=== PATIENT | female | born 1965 | race Caucasian/White ===

== ENCOUNTER → 2017-12-08 | Outpatient (CLI) | payer OTHER | END | disposition home or self-care (01) | LOC: MRI 13:54 | DX: M75.110 Incomplete rotator cuff tear or rupture of unspecified shoulder, not specified as traumatic (principal); M75.100 Unspecified rotator cuff tear or rupture of unspecified shoulder, not specified as traumatic | CPT/HCPCS: 73221 ==

== ENCOUNTER → 2017-12-08 | Outpatient (CLI) | payer OTHER | END | disposition home or self-care (01) | LOC: RAD 14:04 | DX: N23 Unspecified renal colic (principal); R10.83 Colic ==

== ENCOUNTER 2018-05-21 09:00 | Day surgery (SDC) | payer OTHER | END 2018-05-21 12:50 | disposition home or self-care (01) | LOC: AMB-ENDOS 09:00 | DX: K57.30 Diverticulosis of large intestine without perforation or abscess without bleeding (principal) ==

== ENCOUNTER 2021-06-04 12:00 | Inpatient (IN) | payer OTHER ==
[~2021-06-04] VITALS: Ht 167.6 cm; Wt 86.2 kg
[2021-06-04] MEDS ORDERED: METFORMIN HCL1000 M2 PO (14:32)
[2021-06-04] MEDS ORDERED: SYNTHROID75 MCG PO (14:33)
[2021-06-04] MEDS ORDERED: RELION NOV100 UNIT/1 (14:33)
[2021-06-04] MEDS ORDERED: ROSUVASTATIN CAL5 MG PO (14:34)
[2021-06-04] MEDS ORDERED: SINGULAIR5 MG PO (14:34)
[2021-06-04] MEDS ORDERED: RAMIPRIL5 MG PO (14:34)
[2021-06-04] MEDS ORDERED: ADULT LOW DOSE81 M1 PO (14:34)
[2021-06-04] MEDS ORDERED: GABAPENTIN800 M1 PO (14:35)
[2021-06-04] MEDS ORDERED: SYMBICORT 16010.2 GM IH (14:35)
[2021-06-04] MEDS ORDERED: DICY20TA PO (14:36)
[2021-06-04] MEDS ORDERED: ACID REDUCER20 M1 PO (14:36)
[2021-06-04] MEDS ORDERED: MULTIPLE VITAM1 EAC2 PO (14:36)
[2021-06-12] MEDS ORDERED: KETO10TA2 PO (08:54)
[2021-06-12] MEDS ORDERED: PERCOCET 5-3251 EACH PO (08:54)
[2021-06-12] MEDS ORDERED: RECTICARE30 GM TOP (08:55)
[2021-06-12] MEDS ORDERED: BACTRIM DS TAB1 EACH PO (08:56)
== END 2021-06-12 13:36 | disposition home or self-care (01) | DRG 331 ==
LOC: SURH 06-11 06:55 → O/R 06-11 06:55 → SURH 06-11 10:54
PROVIDERS: ADMIT Surgery; ATTEND Surgery
PROC: 0DSP8ZZ Reposition Rectum, Via Natural or Artificial Opening Endoscopic (ICD-10-PCS; principal; 2021-06-11 08:15)
DX: K62.3 Rectal prolapse (principal)